=== PATIENT | female | born 1950 | race Caucasian/White ===

== ENCOUNTER 2022-12-22 12:10 | Outpatient (CLI) | payer MEDICARE, OTHER | END 2022-12-22 12:11 | disposition home or self-care (01) | LOC: CSHMAMMO 12:10 | PROVIDERS: ATTEND Family Medicine | DX: Z12.31 Encounter for screening mammogram for malignant neoplasm of breast (principal); Z85.828 Personal history of other malignant neoplasm of skin | CPT/HCPCS: 77063; 77067 ==

== ENCOUNTER 2023-02-12 13:57 | Outpatient (CLI) | payer MEDICARE, OTHER | END 2023-02-12 13:58 | disposition home or self-care (01) | LOC: CSHULT 13:57 | PROVIDERS: ATTEND Specialist | DX: E07.89 Other specified disorders of thyroid (principal); E04.2 Nontoxic multinodular goiter; Z98.890 Other specified postprocedural states | CPT/HCPCS: 76536 ==